=== PATIENT | male | born 1960 | race Caucasian/White ===

== ENCOUNTER → 2021-01-15 | Outpatient (CLI) | payer OTHER ==
[~2021-01-15] MED LIST: ALEVE220 MG PO; AMITRIPTYLINE H10 M1 PO; ASPIRIN325 PO; GLUCOSAMINE CH1 EAC2 PO; IBUPROFEN 600600 M1 PO; MELOXICAM15 MG PO; MSM-GLUCOSAMIN1 EACH PO; MULTI VITAMIN1 EACH PO; OMEGA 3 FISH O1 EACH PO; PEPCID20 MG PO; PERCOCET 7.5-31 EAC1 PO; REGLAN 10 MG TA10 MG PO; SIMVASTATIN40 MG PO; TESTOSTERO200 MG/11 IM; TRAMADOL 50 MG50 MG PO; VITAMINC500 PO; ZANAFLEX4 MG PO; ZANTAC 150MG T150 MG PO; ZESTRIL10 MG PO
== END ==
LOC: M.PC 10:37
PROVIDERS: ATTEND Family Medicine
DX: M51.37 Other intervertebral disc degeneration, lumbosacral region (principal); M48.061 Spinal stenosis, lumbar region without neurogenic claudication

== ENCOUNTER → 2021-01-29 | Outpatient (CLI) | payer OTHER | END | disposition home or self-care (01) | LOC: M.PC 08:29 | PROVIDERS: ATTEND Anesthesiology Pain Medicine | DX: M54.16 Radiculopathy, lumbar region (principal); G89.29 Other chronic pain; E78.5 Hyperlipidemia, unspecified; F41.9 Anxiety disorder, unspecified; Z98.890 Other specified postprocedural states; Z79.899 Other long term (current) drug therapy; Z87.19 Personal history of other diseases of the digestive system ==